=== PATIENT | male | born 1950 | race Caucasian/White ===

== ENCOUNTER → 2016-07-13 | Outpatient (CLI) | payer BC ==
[~2016-07-13] MED LIST: ASPI81TA28 PO; BLOOD PRESSURE PO; CHOL100010 PO; CHOLESTEROL PO; VITAMIN D PO; XRL10 PO; ZOLP10TA PO
--- NOTE | 2016-07-13 08:49 | DIAGNOSTIC IMAGING REPORT ---
CHEST 2 VIEWS ROUTINE CLINICAL HISTORY: Persistent cough COMPARISON STUDY: 07/18/2013 FINDINGS: The cardiac and mediastinal contours are normal. There is no evidence of focal pulmonary consolidation. There is no evidence of failure. No pleural effusions are visualized.[ There is a stable calcified right hilar lymph node and calcified right lower lobe granuloma. IMPRESSION: Old granulomatous calcifications. No active disease in the chest. Electronically signed by: Chris Mon M.D. 07/13/2016 8:48 AM Dictated Date/Time: 07/13/2016 8:47 AM
== END | disposition home or self-care (01) ==
LOC: C.RAD1850 08:29
PROVIDERS: ATTEND Family Medicine
DX: R05 Cough (principal)

== ENCOUNTER 2016-07-18 07:12 | Emergency (ER) | payer BC ==
[~2016-07-18] VITALS: Ht 190.5 cm; Wt 109.5 kg
[~2016-07-18 07:12] MED LIST changes: -BLOOD PRESSURE PO; -CHOL100010 PO; -CHOLESTEROL PO
[2016-07-18 07:16] VITALS: TEMP 36.7; Ht 190.5 cm; Wt 109.5 kg
--- NOTE | 2016-07-18 07:59 | DIAGNOSTIC IMAGING REPORT ---
CT OF THE ABDOMEN AND PELVIS WITHOUT CONTRAST, STONE PROTOCOL CLINICAL HISTORY: Left flank pain. COMPARISON STUDY: None. TECHNIQUE: Helical axial images of the abdomen and pelvis were obtained without IV or oral contrast according to renal stone protocol. FINDINGS: Note is made of a 4 mm calculus within the dependent aspect of the bladder. There is mild left hydroureteronephrosis. There is mild left perinephric infiltration. There are bilateral parapelvic cysts. Unenhanced images of liver, adrenal glands and pancreas are unremarkable. There are calcified granulomas within the spleen. There is no evidence for a bowel obstruction. There are findings suggestive of bilateral inguinal hernia repairs. IMPRESSION: Mild left hydroureteronephrosis. 4 mm bladder calculus. The findings suggest a left-sided calculus which has recently passed into the bladder. Electronically signed by: Chinedu Helton M.D. 07/18/2016 7:57 AM Dictated Date/Time: 07/18/2016 7:52 AM
[2016-07-18] MEDS ORDERED: CHOL100010 PO (08:19)
[2016-07-18 08:26] VITALS: BP 142/76; PULSE 60; O2SAT 97
[2016-07-18] MEDS ORDERED: CHOLESTEROL PO (08:27)
[2016-07-18] MEDS ORDERED: BLOOD PRESSURE PO (08:27)
--- NOTE | 2016-07-18 17:22 | EMERGENCY ROOM VISIT NOTE ---
ED Visit Note First contact with patient: 07:27 CHIEF COMPLAINT: Left Flank and abdominal pain today HISTORY OF PRESENT ILLNESS: This 66-year-old white male patient had sudden onset of pain in the left flank and left lower quadrant of the abdomen about 3 hours ago. There was nausea but no vomiting. The patient has not noticed any blood in urine or had any increased frequency or pain with urination recently. There is no history of kidney stones. He states his father had kidney stones. The pain was steady and severe. He did take some ibuprofen this morning without improvement. He then took a tablet of Flexeril from his , with moderate improvement in his symptoms. No symptoms on the right. He denies any difficulty with moving his bowels yesterday. No abdominal trauma. No other complaints. REVIEW OF SYSTEM: HEENT: No dizziness, visual problems, hearing loss, or tinnitus. There is no difficulty swallowing and no oral lesions are present. PULMONARY: No cough, shortness of breath, sputum production or hemoptysis. CARDIOVASCULAR: No chest pain, palpitations, shortness of breath or peripheral edema. GASTROINTESTINAL: No diarrhea, constipation, nausea, vomiting, or abdominal pain. GENITOURINARY: No dysuria, frequency, urgency or nocturia. NEUROLOGIC: No weakness, muscle tenderness, epilepsy or history of neurological problems. MUSCULOSKELETAL: No history of joint tenderness/swelling. Positive history of arthritis and arthralgias. SKIN: No rashes or lesions. PSYCHIATRIC: No history of depression or mental illness. ENDOCRINE: No history of diabetes, thyroid disorders, or abnormal hair growth. PMH: Supplemental sheet was reviewed and signed. Previous surgeries: Left knee TKA Medical history: Significant for hypertension and sinus infections Current medications: Reviewed and filed in patient's chart Allergies: NKDA Family history: Significant for hypertension. Parents are . SOCIAL HISTORY: Patient lives at home with his . Non-smoker, occasional alcohol use. Still employed. PHYSICAL EXAM: Vital Signs: Afebrile. Reviewed and filed in patient's chart. General: Well-developed, well-nourished, elderly white male, in no obvious discomfort. He is sitting on the bed. Alert and oriented. Skin: Warm and dry with good turgor. No rashes or lesions. No ecchymosis or erythema. The patient is not diaphoretic. No abrasions. HEART: Regular rate and rhythm without murmurs, ectopy, gallops, or rubs. Peripheral pulses are 2+. LUNGS: Clear to auscultation and breath sounds equal. No wheezes, rales, or rhonchi. Good air movement. ABDOMEN: Soft, left lower quadrant discomfort to palpation, no hepato-splenomegaly, or masses. There is mild left CVA tenderness. NEUROLOGIC: Sensory and motor functions grossly intact. EMERGENCY DEPARTMENT COURSE: Urinalysis shows 250+ blood[address] CT scan of the abdomen and pelvis without contrast shows a 4 mm stone in the bladder. There is mild hydronephrosis. This was read by radiology. His pain had almost disappeared by the time of discharge. DIAGNOSIS: Left ureterolithiasis. Renal colic. DISCHARGE INSTRUCTIONS AND TREATMENT: The patient was educated regarding today' s findings. Conservative care measures were discussed. High fluid intake, strain all urine passed over the next 2 days and bring any solid particles you find to your urologist or PCP for analysis. Strainer was provided. Tylenol and Motrin every 6 hours if needed for pain. He does not require Flomax or narcotics at this point. Return to the ER if the pain becomes severe. Kidney stone handout was provided. Patient was seen in conjunction with Dr. Paulino, who also evaluated the patient and concurred with today's diagnosis and treatment plan. Current/Historical Medications Scheduled Aspirin (Aspirin Ec), 81 MG PO DAILY Cholecalciferol (Vitamin D), 1,000 UNITS PO DAILY Rivaroxaban (Xarelto), 10 MG PO DAILY [Blood Pressure], 1 TAB PO DAILY [Cholesterol], 1 TAB PO DAILY Allergies Coded Allergies: No Known Allergies (Unverified , 07/18/16) Vital Signs Date Time Temp Pulse Resp B/P Pulse Ox O2 Delivery O2 Flow Rate FiO2 07/18/16 08:26 60 26 142/76 97 07/18/16 07:16 36.7 56 15 166/90 97 Room Air Departure Information Impression Primary Impression: Kidney stone on left side Additional Impression: Renal colic Dispostion Home / Self-Care Referrals Mark Rodgers M.D. Forms HOME CARE DOCUMENTATION FORM, Kidney stone size in mm: 4 MOTRIN USE, RENAL COLIC (KIDNEY STONES ), IMPORTANT VISIT INFORMATION Patient Instructions My [facility] Additional Instructions Maintain hydration Strain your urine and save any stones Call Dr. Rodgers tomorrow for follow-up once the stone has passed ibuprofen 600 mg every 6 hours with food for pain control Supplement with Tylenol 650 mg every 6 hours as needed for breakthrough pain Return to the ED for any other concerns Problem Qualifiers
== END 2016-07-18 08:28 | disposition home or self-care (01) ==
LOC: C.EDB 07:13 → C.EDA 08:28
DX: N20.0 Calculus of kidney (principal); N13.30 Unspecified hydronephrosis; I10 Essential (primary) hypertension; Z86.19 Personal history of other infectious and parasitic diseases; Z96.652 Presence of left artificial knee joint; Z79.82 Long term (current) use of aspirin; Z79.899 Other long term (current) drug therapy; Z84.1 Family history of disorders of kidney and ureter; Z82.49 Family history of ischemic heart disease and other diseases of the circulatory system

== ENCOUNTER → 2016-08-19 | Outpatient (CLI) | payer BC ==
[~2016-08-19] MED LIST changes: +BLOOD PRESSURE PO; +CHOL100010 PO; +CHOLESTEROL PO; -VITAMIN D PO; -ZOLP10TA PO
--- NOTE | 2016-08-19 13:41 | PULMONARY FUNCTION TEST ---
CLINICAL DATA: 66-year-old male with a height of 76 inches and a weight of [address] Orozco for evaluation of a persistent cough with exercise. Spirometry pre- and post-bronchodilator, lung volumes, and DLCO were performed. FINDINGS: Pre-bronchodilator spirometry is within normal limits. FVC was 91% of predicted. FEV1 was 90% of predicted. [id number] was 88% of predicted. There was no significant improvement after inhaled bronchodilator. Lung volumes were normal with the exception of a slight reduction in expiratory reserve volume due to the patient's weight. Diffusion capacity was normal at 100% of predicted. IMPRESSION: Normal baseline spirometry with no improvement after inhaled bronchodilator. Normal lung volumes and normal DLCO. MTDD
== END | disposition home or self-care (01) ==
LOC: C.RC 10:11
PROVIDERS: ATTEND Family Medicine
DX: I10 Essential (primary) hypertension (principal); R03.0 Elevated blood-pressure reading, without diagnosis of hypertension; R05 Cough

== ENCOUNTER → 2017-06-01 | Outpatient (CLI) | payer OTHER ==
--- NOTE | 2017-06-01 15:16 | DIAGNOSTIC IMAGING REPORT ---
L HAND MIN 3 VIEWS ROUTINE CLINICAL HISTORY: Left hand pain COMPARISON: None. DISCUSSION: No acute fractures or dislocations are visualized. There is dorsal soft tissue swelling. Within the dorsal soft tissues at the level of a carpal metacarpal joints, there is a linear 7 mm foreign body versus soft tissue calcification. Additional faint soft tissue calcifications are evident. IMPRESSION: 1. No acute fractures 2. Dorsal soft tissue swelling at the base of the hand. 3. Soft tissue calcifications versus foreign bodies. Clinical correlation will be necessary. Electronically signed by: Chris Mon M.D. 06/01/2017 3:14 PM Dictated Date/Time: 06/01/2017 3:12 PM
== END | disposition home or self-care (01) ==
LOC: C.RAD1850 15:04
PROVIDERS: ATTEND Family Medicine
DX: M79.642 Pain in left hand (principal)

== ENCOUNTER 2024-12-29 14:10 | Observation (INO) ==
--- NOTE | 2024-12-29 14:35 | Emergency Department Note ---
History of Present Illness General Chief complaint: Constipation Stated complaint: BOWEL OBSTRUCTION Time Seen by Provider: 12/29/24 14:31 History of Present Illness This is a 74-year-old male who presents to the emergency department via private vehicle with complaints of "constipation". The patient notes last bowel movement was on Tuesday. He denies any nausea or vomiting. He does note recent antibiotic course for a sinus infection. He finished antibiotics 3 days ago. No fevers or chills. The patient does not note some lower abdominal discomfort, suprapubic region. He states that since Tuesday there has been perhaps a tiny, very hard bowel movement but nothing of any substance. He does note that from straining, some hemorrhoids that developed and today a tiny bit of blood was noticed. He denies history of similar. Home Medications Medication Instructions Recorded Confirmed Type cetirizine 10 mg capsule (Zyrtec) 10 mg PO DAILY 04/19/18 12/29/24 History cholecalciferol (vitamin D3) 25 1,000 units PO DAILY 04/19/18 12/29/24 History mcg (1,000 unit) capsule coenzyme Q10 75 mg capsule (Ultra 75 mg PO DAILY 04/19/18 12/29/24 History CoQ10) amlodipine 2.5 mg tablet 2.5 mg PO DAILY 12/16/24 12/29/24 History aspirin 81 mg tablet 81 mg PO DAILY 12/16/24 12/29/24 History benzonatate 100 mg capsule 200 mg (2 x 100 mg) PO TID PRN 12/16/24 12/29/24 Rx cough #60 caps clopidogrel 75 mg tablet (Plavix) 75 mg PO DAILY 12/16/24 12/29/24 History isosorbide mononitrate 30 mg 30 mg PO DAILY 12/16/24 12/29/24 History tablet,extended release 24 hr nebivolol 5 mg tablet (Bystolic) 5 mg PO DAILY 12/16/24 12/29/24 History nitroglycerin 0.4 mg sublingual 0.4 mg sublingual Q5M PRN Chest 12/16/24 12/29/24 History tablet Pain ranolazine 500 mg tablet,extended 500 mg PO BID 12/16/24 12/29/24 History release,12 hr ropinirole 1 mg tablet 1 mg PO DAILY 12/16/24 12/29/24 History sertraline 100 mg tablet 150 mg PO DAILY 12/16/24 12/29/24 History trazodone 100 mg tablet 150 mg PO DAILY 12/16/24 12/29/24 History albuterol sulfate 90 mcg/actuation 2 puff inhalation QID PRN Wheezing 12/29/24 12/29/24 History aerosol inhaler multivitamin 1 tab PO DAILY 12/29/24 12/29/24 History rosuvastatin 20 mg tablet 20 mg PO DAILY 12/29/24 12/29/24 History Allergies Allergy/AdvReac Type Severity Reaction Status Date / Time No Known Allergies Allergy Verified 12/29/24 18:03 Past Med/Surg History Problem List Bleeding hemorrhoids CAD (coronary artery disease) Obstipation 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, right Pelvic pain Peyronie's disease Myofascial pain Cervical facet syndrome (Chronic) Cervical spondylosis (Chronic) Insomnia (Chronic) High cholesterol (Chronic) HTN (hypertension) (Chronic) Medical History History of deviated nasal septum Surgical History History of cardiac cath History of heart artery stent History of tonsillectomy and adenoidectomy H/O hernia repair H/O arthroscopic knee surgery Right History of total knee arthroplasty Social History Smoking Status: Never smoker Do You Dip or Chew Tobacco: No; Hx Alcohol Use: Yes Alcohol type: other Hx Substance Use: No Preferred Language: Welsh Communication Ability: Effective Visual Impairment: No Limitations Hearing Ability: Normal 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 Beliefs That Will Affect Care: None marital status: Current Living Situation: Spouse current occupational status: retired current occupation: Retired Feels Safe at Home: Yes Safety Concerns: Feels Safe At This Time Assistive Devices: Glasses Review of Systems A total of 10 systems reviewed and were otherwise negative Physical Exam Vital Signs Vital Signs - 24 hr 12/29/24 14:14 12/29/24 15:30 12/29/24 16:00 Temperature 36.4 C L Temperature Source Temporal Artery Scan Pulse Rate 54 L 59 L 47 L Pulse Rate from SpO2 Sensor 59 L Respiratory Rate 19 Respiratory Effort / Characteristics Non-Labored Spontaneous Respiratory Depth Normal Respiratory Pattern Regular Blood Pressure 132/76 133/80 Blood Pressure Mean 94 102 Pulse Oximetry 95 94 Oxygen Delivery Method Room Air Sepsis Recent Fever Within 48 Hours No Sepsis New/Unexplained Change in Mental Status No Sepsis Action Taken by Nursing No Action Required 12/29/24 16:00 Temperature Temperature Source Pulse Rate 57 L Pulse Rate from SpO2 Sensor 57 L Respiratory Rate 20 Respiratory Effort / Characteristics Respiratory Depth Respiratory Pattern Blood Pressure 160/90 H Blood Pressure Mean 131 Pulse Oximetry Oxygen Delivery Method Sepsis Recent Fever Within 48 Hours Sepsis New/Unexplained Change in Mental Status Sepsis Action Taken by Nursing VITAL SIGNS - Vital signs and nursing notes were reviewed. Stable and afebrile. GENERAL -74-year-old male appearing his stated age who is in no acute distress. Communicates well with provider and answers questions appropriately. SKIN - Without rashes. No meningeal or petechial rash. HEAD - NC/AT. EYES - PERRL with EOMI bilaterally. Sclera anicteric. EARS - No deformities of external structures noted on gross examination bilaterally. NOSE - Midline and without cyanosis. No epistaxis or purulent drainage noted. MOUTH/OROPHARYNX - Without perioral cyanosis. NECK - Neck with FROM. No nuchal rigidity. LUNGS - CTA CARDIAC - RRR ABDOMEN - Abdominal contour normal without pulsations or visible masses. BS normoactive all four quadrants. There is suprapubic abdominal tenderness to palpation. No guarding. No rigidity no palpable masses, hepatosplenomegaly, or ascites noted. EXTREMITIES - No clubbing or peripheral cyanosis. +5/5 strength noted in UE/LE bilaterally. NEUROLOGIC - Cranial nerves II through XII grossly intact. PSYCH -alert, oriented and pleasant on exam Course Administered Medications Acetaminophen (Acetaminophen 325 Mg Tab) 650 mg PO Q4H PRN PRN Reason: pain/fever Stop: 01/28/25 21:05 Last Admin: 12/30/24 06:03 Dose: 650 mg Documented By: meliton Admin: 12/29/24 21:43 Dose: 650 mg Documented By: meliton Amlodipine Besylate (Amlodipine Besylate 5 Mg Tab) 2.5 mg PO HS ANTONIO Stop: 01/28/25 22:14 Last Admin: 12/29/24 22:17 Dose: 2.5 mg Documented By: meliton Clopidogrel Bisulfate (Clopidogrel Bisulfate 75 Mg Tab) 75 mg PO HS ANTONIO Stop: 01/28/25 22:14 Last Admin: 12/29/24 22:18 Dose: 75 mg Documented By: meliton Phenylephrine HCl (Phenylephrine 0.25% Supp 1 Ea) 1 supp HI TID ANTONIO Stop: 01/28/25 21:05 Last Admin: 12/29/24 21:59 Dose: 1 supp Documented By: meliton Ranolazine (Ranolazine 500 Mg Er Tab) 500 mg PO BID ANTONIO Stop: 01/28/25 21:05 Last Admin: 12/29/24 22:00 Dose: 500 mg Documented By: meliton Ropinirole HCl (Ropinirole Hcl 1 Mg Tablet) 1 mg PO HS [facility] Stop: 01/28/25 21:05 Last Admin: 12/29/24 22:00 Dose: 1 mg Documented By: meliton Rosuvastatin Calcium (Rosuvastatin Calcium 20 Mg Tab) 20 mg PO [facility] Stop: 01/28/25 22:14 Last Admin: 12/29/24 22:18 Dose: 20 mg Documented By: meliton Trazodone HCl (Trazodone Hcl 50 Mg Tab) 150 mg PO [facility] Stop: 01/28/25 21:05 Last Admin: 12/29/24 22:00 Dose: 150 mg Documented By: meliton Discontinued Medications Glycerin (Glycerin Adult 12 Supp/Box Supp) Confirm Administered Dose 12 supp HI .STK-MED ONE Stop: 12/29/24 18:21 Last Admin: 12/29/24 19:46 Dose: 12 supp Documented By: JOSUE Glycerin (Glycerin Adult 12 Supp/Box Supp) 1 supp HI NOW ONE Stop: 12/29/24 18:53 Last Admin: 12/29/24 19:45 Dose: Not Given Documented By: JOSUE Acetaminophen (Ofirmev) 1,000 mg in 100 mls @ 400 mls/hr IV NOW STA Stop: 12/29/24 15:20 Last Infusion: 12/29/24 15:48 Dose: Infused Documented By: Admin: 12/29/24 15:29 Dose: 400 mls/hr Documented By: MARY Ioversol (Optiray 320 100ml) 93 ml IV ONCE ONE Stop: 12/29/24 15:52 Last Admin: 12/29/24 15:51 Dose: 93 ml Documented By: MINI Lidocaine HCl (Lidocaine 2% Jelly 5 Ml Tube) 1 ml EXT NOW ONE Stop: 12/29/24 17:43 Last Admin: 12/29/24 17:56 Dose: 1 ml Documented By: MARY Medical Decision Making Laboratory Data 12/29/24 15:13 12/29/24 15:13 Lab Results 12/29/24 12/29/24 12/29/24 Range/Units 15:13 15:17 16:25 WBC 8.94 (4.8-10.8) K/ul RBC 4.85 (4.70-6.10) M/uL Hgb 15.4 (14.0-18.0) g/dl POC Hgb 15.6 (14.0-18.0) g/dl Hct 44.1 (42.0-52.0) % POC Hct 46 (42-52) % MCV 90.9 (80.0-100.0) fL MCH 31.8 (25.0-34.0) pg MCHC 34.9 (32.0-36.0) g/dL RDW Std Deviation 42.5 (36.4-46.3) fL RDW Coeff of Rajni 12.9 (11.5-14.5) % Plt Count 193 (130-400) K/uL MPV 11.6 (9.4-12.4) fL Immature Gran % (Auto) 0.3 % Neut % (Auto) 72.4 % Lymph % (Auto) 15.4 % Bowie % (Auto) 8.4 % Eos % (Auto) 2.8 % Baso % (Auto) 0.7 % Neut # (Auto) 6.47 (1.40-6.50) K/uL Lymph # (Auto) 1.38 (1.20-3.40) K/uL Bowie # (Auto) 0.75 H (0.11-0.59) K/uL Eos # (Auto) 0.25 (0.00-0.50) K/uL Baso # (Auto) 0.06 (0.00-0.20) K/uL Immature Gran # (Auto) 0.03 (0.01-0.20) K/uL POC Sodium 138 (135-144) mmol/L Sodium 136 (136-145) mmol/L POC Potassium 4.0 (3.3-5.0) mmol/L Potassium 4.0 (3.5-5.1) mmol/L POC Chloride 104 (101-112) mmol/L Chloride 104 (98-107) mmol/L Carbon Dioxide 24 (21-32) mmol/L POC Total CO2 22 L (24-31) mmol/L Anion Gap 8 (3-11) POC Anion Gap 17.0 (16-25) mmol/L POC BUN 21 H (7-18) mg/dl BUN 21 (6-23) mg/dl Creatinine 0.96 (0.6-1.4) mg/dl POC Creatinine 1.0 (0.6-1.3) mg/dl Est Cr Clr Drug Dosing 90.1 ml/min eGFR 83.46 BUN/Creatinine Ratio 21.9 H (10-20) Glucose 110 H (70-99(Fasting)) mg/dl POC Glucose (other) 109 H (70-99) mg/dl Calcium 9.3 (8.6-10.3) mg/dl POC Ioniz Calcium Gutierrez 1.20 (1.12-1.32) mmol/l Total Bilirubin 0.8 (0.2-1.0) mg/dl AST 23 (13-39) U/L ALT 18 (7-52) U/L Alkaline Phosphatase 51 (34-104) U/L Total Protein 7.0 (6.0-8.3) gm/dl Albumin 4.3 (3.4-5.0) gm/dl Globulin 2.7 (2.5-4.0) gm/dl Albumin/Globulin Ratio 1.6 (0.9-2) Urine Color Yellow Urine Appearance Clear (Clear) Urine pH 5.5 (4.5-7.5) Ur Specific Dulzura 1.027 (1.000-1.030) Urine Protein Negative (Negative) Urine Glucose (UA) Negative (Negative) Urine Ketones Negative (Negative) Urine Blood Negative (Negative) Urine Nitrite Negative (Negative) Urine Bilirubin Negative (Negative) Urine Urobilinogen Negative (Negative) Ur Leukocyte Esterase Trace H (Negative) Urine WBC (Auto) 0-5 (0-5) /hpf Urine RBC (Auto) 0-2 (0-2) /hpf U Hyaline Cast (Auto) 0-2 (0-2) /lpf U Epithel Cells (Auto) 0-2 (0-2) /hpf Urine Bacteria (Auto) None Seen (None Seen) Urine Comment Imaging Data Radiologist's Impression: Abdomen/Pelvis CT 12/29/24 14:43 EXAMINATION: CT of the abdomen and pelvis performed after the administration of IV contrast TECHNIQUE: Helical CT images from the lung bases through the symphysis pubis were obtained with contrast. Coronal and sagittal reformatted images were generated at a workstation for further assessment. Dose reduction techniques were achieved by using automatic exposure control and/or adjustment of mA and/or kV according to patient size and/or use of iterative reconstruction technique. COMPARISON: None HISTORY: Abdominal pain FINDINGS: Lower chest: No consolidation. No pleural effusion or pneumothorax. Liver: No suspicious liver lesions. Portal veins appear patent. Gallbladder: No gallstones. No evidence of acute cholecystitis. Spleen: Normal size. Pancreas: No suspicious pancreatic lesions. The pancreatic duct is not dilated. Adrenal glands: No adrenal nodules. Kidneys: No masses or stones. Mild bilateral hydroureter and hydronephrosis, likely related to urinary bladder distention. Bladder / Pelvic organs: Prominent distended urinary bladder. No mass or wall thickening. The prostate gland may be mildly enlarged. Bowel: No bowel obstruction. No abnormal bowel wall thickening. The appendix is unremarkable. There is a large colonic stool burden, with a large volume of stool at the rectum and sigmoid colon. Lymph nodes: No retroperitoneal, mesenteric, or pelvic lymphadenopathy. Peritoneum / Retroperitoneum: No free fluid or air within the abdomen. Vessels: No infrarenal aortic aneurysm. Bones and soft tissues: No suspicious lesion in the bones. IMPRESSION: Large colonic stool with marked stool burden in the rectum and sigmoid colon, concerning for impaction. The urinary bladder is significantly distended resulting in mild bilateral hydroureteronephrosis. Electronically signed by Mark Garcia 12-29-2024 5:20 PM MDM Narrative Patient was seen and evaluated as above in room B05. Review was performed of nursing notes and vital signs. I did review pertinent previous visits and patient history. After obtaining a thorough history and physical examination the above work up was performed. Patient presents to us today for evaluation of lower abdominal discomfort and decreased bowel movement over the past few days. The patient is tender in the lower abdomen on examination. No guarding. No rigidity. Patient does note development of hemorrhoids now with straining over the past few days. He is on Plavix plus aspirin. Small amount of bleeding hemorrhoids today noted per patient. Options of care were discussed with the patient. Patient initially was ordered a KUB from triage however upon assessment of the patient we will proceed with a CT scan of the abdomen/pelvis to further assess noting the abdominal pain and decreased stool output to ensure no concomitant diverticulitis/intestinal issue beyond constipation. Patient was ordered IV Tylenol for pain. I did review the CT scan. The patient has a large stool burden with evidence of dilated distal colon and rectal region secondary to the fecal load. There is also a distended bladder. Bladder scan was performed. Patient seem to be retaining some urine but was able to urinate. He was feeling much better following the spontaneous urination but still retaining per bedside post void residual as measured by ultrasound. Labs revealed no leukocytosis or concerning anemia. There is no evidence of kidney or liver failure. Glucose 110. Urinalysis negative. Formal CT scan as above noting the large colonic stool burden and impaction. 1733: I spoke with Dr. Carrington, bootmaker regarding the CT scan findings and the patient's presentation today. Recommendation was disimpaction as we had discussed, followed by soapsuds enemas, and also initiating oral therapy such as GoLytely. My plan is to proceed with medical admission noting the patient's antiplatelet therapy in the setting of some rectal bleeding even before the disimpaction with the hemorrhoids and findings today. We will proceed with further evaluation and management in the inpatient setting. Case discussed with the hospitalist service. Please refer to further documentation regarding his stay. Verbal consent was obtained from the patient. Mao catheter placed by RN. I do recommend attempted stool disimpaction. Verbal consent was obtained from the patient. I reviewed benefit versus risk with the patient in detail. It is felt that the benefit outweighed risk. Patient was placed in a position on the right side. Mao catheter was draining appropriately of yellow urine, no blood seen. The rectal region was lubricated with sterile jelly and unfortunately the stool was a full finger length within the rectal region and no stool was able to be retrieved. I did advance a glycerin suppository to help facilitate passage of stool. Will proceed with soapsuds enema and patient will also begin the GoLytely prep. Patient will drink 8 ounces every 20 minutes but only for a few doses, likely 2 or three doses in total. He is not to drink the entire 4 L. The goal is to begin initiation of passage of stool. GCS: 15 In the evaluation and treatment of this patient the following differential diagnoses were entertained: Fecal impaction, stercoral colitis, perforation, diverticulitis, bowel obstruction, among others Impression & Plan Fecal impaction, Acute urinary retention, Hydroureteronephrosis, Abdominal pain, lower Discharge Plan Visit Data Chief Complaint: Constipation Stated Complaint: BOWEL OBSTRUCTION ED Provider: Branden Doyle ED Midlevel Provider: Enmanuel Soto Discharge Problem: Fecal impaction, Acute urinary retention, Hydroureteronephrosis, Abdominal pain, lower Patient Disposition: Admitted As Inpatient Condition: Good Discharge Instructions Interventions: ED Discharge Assessment Last Done: 12/29/24 20:38
[2024-12-29] MEDS: ACETAMINOPHEN 1,000 MG/100 ML VIAL IV STA (15:29)
[2024-12-29 15:30] LABS: Hematocrit (blood only) 44.1 % (42.0-52.0); Hemoglobin 15.4 g/dl (14.0-18.0); Immature Granulocytes # (auto) 0.03 K/uL (0.01-0.20); Immature Granulocytes % (auto) 0.3 %; Mean Corpuscular Hemoglobin 31.8 pg (25.0-34.0); Mean Corpuscular Volume 90.9 fL (80.0-100.0); Platelet Count 193 K/uL (130-400); RDW Standard Deviation 42.5 fL (36.4-46.3); Red Blood Count 4.85 M/uL (4.70-6.10); White Blood Count 8.94 K/ul (4.8-10.8)
[2024-12-29] MEDS: OPTIRAY 320 100ml IV ONE (15:51)
[2024-12-29 15:53] LABS: Alanine Aminotransferase 18.0 U/L (7-52); Albumin Globulin Ratio 1.6 (0.9-2); Alkaline Phosphatase 51.0 U/L (34-104); Anion Gap 8.0 (3-11); Bilirubin,Total 0.8 mg/dl (0.2-1.0); Blood Urea Nitrogen 21.0 mg/dl (6-23); Calcium 9.3 mg/dl (8.6-10.3); Carbon Dioxide 24.0 mmol/L (21-32); Chloride 104.0 mmol/L (98-107); Creatinine Clr Calc Pharmacy 90.1 ml/min; Globulin 2.7 gm/dl (2.5-4.0); Glucose 110.0 mg/dl (70-99(Fasting)); Potassium 4.0 mmol/L (3.5-5.1); Sodium 136.0 mmol/L (136-145); Total Protein 7.0 gm/dl (6.0-8.3)
--- NOTE | 2024-12-29 16:28 | Emergency Department Note ---
ED Visit Note I was consulted by the Advanced Practice Provider, Enmanuel Soto PA-C. I personally made/approved the management plan and take responsibility for the patient management. I performed a substantive portion of the visit. This includes the aspects of: -History/Physical/Personally seeing the patient -MDM .
[2024-12-29 17:08] LABS: Appearance Urine Clear (Clear); Bacteria Urine Automated None Seen (None Seen); Cast Urine Automated 0-2 /lpf (0-2); Epithelial Cell Urine Auto 0-2 /hpf (0-2); Glucose Urine UA Negative (Negative); RBC Urine Automated 0-2 /hpf (0-2); WBC Urine Automated 0-5 /hpf (0-5)
--- NOTE | 2024-12-29 17:21 | CT Scan Report ---
EXAMINATION: CT of the abdomen and pelvis performed after the administration of IV contrast TECHNIQUE: Helical CT images from the lung bases through the symphysis pubis were obtained with contrast. Coronal and sagittal reformatted images were generated at a workstation for further assessment. Dose reduction techniques were achieved by using automatic exposure control and/or adjustment of mA and/or kV according to patient size and/or use of iterative reconstruction technique. COMPARISON: None HISTORY: Abdominal pain FINDINGS: Lower chest: No consolidation. No pleural effusion or pneumothorax. Liver: No suspicious liver lesions. Portal veins appear patent. Gallbladder: No gallstones. No evidence of acute cholecystitis. Spleen: Normal size. Pancreas: No suspicious pancreatic lesions. The pancreatic duct is not dilated. Adrenal glands: No adrenal nodules. Kidneys: No masses or stones. Mild bilateral hydroureter and hydronephrosis, likely related to urinary bladder distention. Bladder / Pelvic organs: Prominent distended urinary bladder. No mass or wall thickening. The prostate gland may be mildly enlarged. Bowel: No bowel obstruction. No abnormal bowel wall thickening. The appendix is unremarkable. There is a large colonic stool burden, with a large volume of stool at the rectum and sigmoid colon. Lymph nodes: No retroperitoneal, mesenteric, or pelvic lymphadenopathy. Peritoneum / Retroperitoneum: No free fluid or air within the abdomen. Vessels: No infrarenal aortic aneurysm. Bones and soft tissues: No suspicious lesion in the bones. IMPRESSION: Large colonic stool with marked stool burden in the rectum and sigmoid colon, concerning for impaction. The urinary bladder is significantly distended resulting in mild bilateral hydroureteronephrosis. Electronically signed by Mark Garcia 12-29-2024 5:20 PM
[2024-12-29] MEDS ORDERED: LAVAGE SOLUTION 4000ML PO SCH (17:45)
[2024-12-29] MEDS: LIDOCAINE 2% JELLY 5 ML TUBE EXT ONE (17:56)
--- NOTE | 2024-12-29 18:08 | History & Physical Report ---
Date of Service December 29, 2024 Assessment & Plan (1) Obstipation: (2) Bleeding hemorrhoids: (3) CAD (coronary artery disease): (4) HTN (hypertension): Plan 74 y/o man with CAD and HTN admitted with very severe obstipation causing acute urinary retention and hydronephrosis #Obstipation -ED discussed with telephone maintainer gastroentrerologist - manual disimpation in progress, fleet enema, golytely 8 oz x 3 from above #acute urinary retention and bilateral hydronephrosis -continue obrien placed in ED, voiding trial after obstipation resolved #bleeding hemorrhoids (on ASA and plavix) -hemorrhoidal suppositories tid, address constipation, aim for toothpaste soft stools -try to contiue ASA and plavix if possible, has been >6 mo from stent in case brief interruption needed -CBC as needed has not been a lot of bleeding Hg normal today #CAD with PCI of LAD at [facility] June 2024 - reviewed discharge summary from that admission #Microvascular CAD with chronic angina - currently pretty well controlled #HTN #HLD -remain on DAPT with ASA and plavix at least 1 year -continue ranolazine, rosuvastatin, B-jordi, imdur, amlodipine -imdur recently reduced to daily in AM because of lightheadedness DVT ppx - SCD for now History of Present Illness Primary Care Provider: Kristopher Orozco 74 y/o who came in with lower abdominal pain, unable to have BM several days, bleeding hemorrhoids several days of feeling poorly, lower abdominal pain, no BM except few hard nikia has not been aware of being constipated the past few weeks, no history of similar incidents of severe constipation has bleeding hemorrhoids from ASA and plavix for past month has struggled with a sinusitis and cough that finally resolved within past week he has chronic angina from microvascular coronary disease managed by [facility], LAD stent at [facility] in May obrien being placed for urinary retention ED spoke with resource management planner who recommended disimpaction, enemas, go lytely few doses from above Allergies Allergy/AdvReac Type Severity Reaction Status Date / Time No Known Allergies Allergy Verified 12/29/24 18:03 Home Medications Medication Instructions Recorded Confirmed Type cetirizine 10 mg capsule (Zyrtec) 10 mg PO DAILY 04/19/18 12/29/24 History cholecalciferol (vitamin D3) 25 1,000 units PO DAILY 04/19/18 12/29/24 History mcg (1,000 unit) capsule coenzyme Q10 75 mg capsule (Ultra 75 mg PO DAILY 04/19/18 12/29/24 History CoQ10) amlodipine 2.5 mg tablet 2.5 mg PO DAILY 12/16/24 12/29/24 History aspirin 81 mg tablet 81 mg PO DAILY 12/16/24 12/29/24 History benzonatate 100 mg capsule 200 mg (2 x 100 mg) PO TID PRN 12/16/24 12/29/24 Rx cough #60 caps clopidogrel 75 mg tablet (Plavix) 75 mg PO DAILY 12/16/24 12/29/24 History isosorbide mononitrate 30 mg 30 mg PO DAILY 12/16/24 12/29/24 History tablet,extended release 24 hr nebivolol 5 mg tablet (Bystolic) 5 mg PO DAILY 12/16/24 12/29/24 History nitroglycerin 0.4 mg sublingual 0.4 mg sublingual Q5M PRN Chest 12/16/24 12/29/24 History tablet Pain ranolazine 500 mg tablet,extended 500 mg PO BID 12/16/24 12/29/24 History release,12 hr ropinirole 1 mg tablet 1 mg PO DAILY 12/16/24 12/29/24 History sertraline 100 mg tablet 150 mg PO DAILY 12/16/24 12/29/24 History trazodone 100 mg tablet 150 mg PO DAILY 12/16/24 12/29/24 History albuterol sulfate 90 mcg/actuation 2 puff inhalation QID PRN Wheezing 12/29/24 12/29/24 History aerosol inhaler multivitamin 1 tab PO DAILY 12/29/24 12/29/24 History rosuvastatin 20 mg tablet 20 mg PO DAILY 12/29/24 12/29/24 History Past Med/Surg History Problem List Bleeding hemorrhoids CAD (coronary artery disease) Obstipation 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, right Pelvic pain Peyronie's disease Myofascial pain Cervical facet syndrome (Chronic) Cervical spondylosis (Chronic) Insomnia (Chronic) High cholesterol (Chronic) HTN (hypertension) (Chronic) Medical History History of deviated nasal septum Surgical History History of cardiac cath History of heart artery stent History of tonsillectomy and adenoidectomy H/O hernia repair H/O arthroscopic knee surgery Right History of total knee arthroplasty Social History Smoking Status: Never smoker Hx Alcohol Use: Yes Alcohol type: wine Hx Substance Use: No Preferred Language: Luxembourgish Communication Ability: Effective Visual Impairment: No Limitations Hearing Ability: Normal Beliefs That Will Affect Care: None marital status: Current Living Situation: Spouse current occupational status: retired current occupation: Retired Feels Safe at Home: Yes Review of Systems Review of Systems: All systems reviewed & are unremarkable except as noted in HPI & below Physical Exam Physical Exam: Last 24h vitals reviewed GEN: lying on side in ED, looks uncomfortable HEENT: pupils equal, sclerae anicteric, moist MM RESP: normal WOB, CTAB CV: reg no mrg ABD: lower abdomen full and mildly tender, +BT : obrien with clear yellow urine SKIN: warm and dry, no generalized rashes EXT: wwp no edema NEURO: AOx person, place, and situation. Face symmetric, speech normal, moves 4 ext spontaneously and equally Results & Data Results & Data Vital Signs (Past 12 Hours) Vital Signs Temp Pulse Resp BP Pulse Ox O2 Del Method 12/29/24 16:00 57 L 20 160/90 H 12/29/24 16:00 47 L 12/29/24 15:30 59 L 133/80 94 12/29/24 14:14 36.4 C L 54 L 19 132/76 95 Room Air Laboratory Results UA only trace LE CBC and CMP reviewed and pasically normal, unremarkable. Cr is 0.96 CT with severe obstipation as described above as well as very distended bladder. I personally reviewed CT films and there is a massive amount of stool in sigmoid and rectum with significant amount of distention PG Care Time/CCT Total # of Minutes Spent Total Time Spent with Patient: Total time spent is greater than 50% in coordination of care (as documented) at patient's floor/unit and/or counseling patient: Coding Level of Care Code 45781 INT INP/OBS CARE MIN Diagnoses Obstipation K59.00 Bleeding hemorrhoids K64.9 CAD (coronary artery disease) I25.10 HTN (hypertension) I10
[2024-12-29] MEDS: GLYCERIN ADULT 12 SUPP/BOX SUPP PR ONE ×2 (19:45→19:46)
[2024-12-29] MEDS ORDERED: MAGNESIUM HYDROXIDE SUSP 30 ML UDC PO PRN (21:06)
[2024-12-29] MEDS ORDERED: POLYETHYLENE (MIRALAX) 17 GM PACK PO PRN (21:06)
[2024-12-29] MEDS ORDERED: NITROGLYCERIN SL 0.4 MG/TAB TAB SL PRN (21:06)
[2024-12-29] MEDS ORDERED: SOD PHOSPHATE/SOD BIPHOSPHATE ENEMA 132 ML BTL PR PRN (21:06)
[2024-12-29] MEDS ORDERED: ALUMINUM/MAGNESIUM SUSP 30 ML UDC PO PRN (21:06)
[2024-12-29] MEDS ORDERED: ALBUTEROL HFA 8 GM INHALER INH PRN (21:06)
[2024-12-29] MEDS ORDERED: ONDANSETRON INJ 2 MG/ML 2 ML VIAL IV PRN (21:06)
[2024-12-29] MEDS ORDERED: BENZONATATE 100 MG CAPSULE PO PRN (21:06)
[2024-12-29] MEDS: ACETAMINOPHEN 325 MG TAB PO PRN (21:43)
[2024-12-29] MEDS: PHENYLEPHRINE 0.25% SUPP 1 EA PR SCH (21:59)
[2024-12-29] MEDS: RANOLAZINE 500 MG ER TAB PO SCH (22:00)
[2024-12-29] MEDS: ROSUVASTATIN CALCIUM 20 MG TAB PO SCH (22:18)
[2024-12-29] MEDS: CLOPIDOGREL BISULFATE 75 MG TAB PO SCH (22:18)
[2024-12-30 07:45] VITALS: BP 129/73; PULSE 56; RESP 18; TEMP 98.2; O2SAT 94
[2024-12-30] MEDS: ASPIRIN 81 MG ECTAB PO SCH (07:47)
[2024-12-30] MEDS: ISOSORBIDE MONO EXTENDED REL 30 MG TABCR PO SCH (07:48)
[2024-12-30] MEDS: SERTRALINE HCL 50 MG TABLET PO SCH (07:48)
[2024-12-30] MEDS: METOPROLOL TARTRATE 25 MG TAB PO SCH (07:48)
[2024-12-30 08:25] LABS: Anion Gap 7.0 (3-11); Blood Urea Nitrogen 15.0 mg/dl (6-23); Calcium 8.6 mg/dl (8.6-10.3); Carbon Dioxide 27.0 mmol/L (21-32); Chloride 107.0 mmol/L (98-107); Creatinine Clr Calc Pharmacy 86.3 ml/min; Glucose 106.0 mg/dl (70-99(Fasting)); Potassium 3.9 mmol/L (3.5-5.1); Sodium 141.0 mmol/L (136-145)
[2024-12-30 08:30] LABS: Hematocrit (blood only) 40.8 % (42.0-52.0); Hemoglobin 13.7 g/dl (14.0-18.0); Mean Corpuscular Hemoglobin 30.9 pg (25.0-34.0); Mean Corpuscular Volume 92.1 fL (80.0-100.0); Platelet Count 178 K/uL (130-400); RDW Standard Deviation 43.8 fL (36.4-46.3); Red Blood Count 4.43 M/uL (4.70-6.10); White Blood Count 9.48 K/ul (4.8-10.8)
[2024-12-30] MEDS ORDERED: ROSUVASTATIN CALCIUM 20 MG TAB PO SCH (09:00)
[2024-12-30] MEDS ORDERED: CLOPIDOGREL BISULFATE 75 MG TAB PO SCH (09:00)
[2024-12-30] MEDS ORDERED: HYDROCORTISONE ACETATE 25 MG SUPP PR ONE (09:30)
--- NOTE | 2024-12-30 10:53 | Discharge Summary ---
Discharge Summary Date of Service December 30, 2024 Principal Dx & Hospital Course #1 = Principal Diagnosis (1) Obstipation: (2) Bleeding hemorrhoids: (3) CAD (coronary artery disease): (4) HTN (hypertension): Plan 74 y/o man with CAD and HTN admitted with very severe obstipation causing acute urinary retention and hydronephrosis #Obstipation CTAP: large colonic stool w/ marked stool burden in rectum & sigmoid colon, concerning for impaction. Urinary bladder is significantly distended in mild b/l hydroureteronephrosis. ED discussed with manager talent acquisition medical laboratory technicians - manual disimpaction in progress, fleet enema, golytely 8 oz x 3 from above --> has had multiple lg BM's since disimpaction & laxatives. Recommend continue on stool softener + daily miralax at home. Recommend discuss repeat CN w/ PCP at follow up. --> pt unsure of last one & now has change in bowel habits. #acute urinary retention and bilateral hydronephrosis - resolved continue obrien placed in ED, secondary to urinary retention from obstipation Obrien removed 12/30 --> voiding without difficulty prior to dc. #bleeding hemorrhoids (on ASA and plavix) hemorrhoidal suppositories BID x 5 days on discharge. CBC stable at time of dc. Recommend follow up w/ PCP outpatient for recheck of CBC #CAD with PCI of LAD at [facility] June 2024 remain on DAPT with ASA and plavix at least 1 year continue ranolazine, rosuvastatin, B-jordi, imdur, amlodipine imdur recently reduced to daily in AM because of lightheadedness Discharged home 12/30 Admission HPI Per Admitting Provider 74 y/o who came in with lower abdominal pain, unable to have BM several days, bleeding hemorrhoids several days of feeling poorly, lower abdominal pain, no BM except few hard nikia has not been aware of being constipated the past few weeks, no history of similar incidents of severe constipation has bleeding hemorrhoids from ASA and plavix for past month has struggled with a sinusitis and cough that finally resolved within past week he has chronic angina from microvascular coronary disease managed by [facility], LAD stent at [facility] in May obrien being placed for urinary retention ED spoke with medical laboratory technicians who recommended disimpaction, enemas, go lytely few doses from above Discharge Exam General: NAD, VS: BP 129/73, P56, Resp18, T36.8C Resp: normal respiratory effort Abd: + BS, no tenderness to palpation, soft Extremities: Moves all extremities, no edema Neuro: A&O x3, Skin: intact, no lesions noted Discharge Plan Discharge Items Patient Disposition: Home - Self-Care Reason For Visit: OBSTIPATION, URINARY RETENTION Discharge Diagnosis: Severe constipation, urinary retention. Condition on Discharge: Good Activity: Resume your previous activity Non-emergency contact: Primary Care Provider Call non-emergency contact if: you have any medication questions, your symptoms worsen, your pain is not controlled and you have a fever Follow-up/Referrals: Kristopher Orozco [Primary Care Provider] - Diet: Heart Healthy Addtl Attending Provider Instructions: Mr. Cruz, You were recently hospitalized secondary to severe constipation that also affected your ability to urinate. You were given a bowel regimen and had several significant bowel movements that did help with your symptoms. After the bowel movements, the urinary catheter was removed and you are able to urinate on your own. Medications: Your medication list has been reviewed and reconciled upon discharge to ensure accuracy and continuity of care. An updated list of all your medications is included with your hospital discharge paperwork. Please review this list closely, and make note of any changes. Phenylephrine suppositories have been sent in to your pharmacy. These help with your hemorrhoids. Please use these twice daily for the next 5 days. Over the counter medications recommended: Colace 100 mg once daily. - this is a stool softener and will help your stools remain soft so that your hemorrhoids can begin to heal Miralax 1 capful daily - this is a laxative that will help you continue to move your bowels. - Please take this daily for at least 1-2 weeks or until seen by your PCP for further recommendations. Take your medications as instructed; do not skip a dose of your medicines. Make sure all of your doctors know every medicine you are taking (including [id number] medicines, vitamins, and supplements). Call your primary care provider before taking any new medicines (including over- the-counter medicines, vitamins, and supplements), because some of these may interact with your current medications, or may make your symptoms worse. Tell your primary care provider if you cannot afford your medications. Activity: You can do normal everyday activities as your body allows. Take rest breaks if you feel tired. Do not overexert. Stop activity if you have pain, shortness of breath or feel dizzy. Follow-up appointments: Make an appointment with your primary care physician within one week of discharge. A copy of this summary will be sent to them. Every time you see your primary care physician, or any other doctor, bring your medication list, and a list of questions. - At your follow up visit, please discuss a repeat colonoscopy. CONTACT YOUR PRIMARY CARE PROVIDER if you experience any of the following: Shortness of breath or difficulty breathing Fevers or chills Feeling tired with normal activity or experiencing dizziness or fainting Difficulty following your treatment plan, or difficulty taking medications CALL 911 OR GO TO THE EMERGENCY DEPARTMENT if you experience any of the following: Severe abdominal pain or nausea/vomiting Severe chest pain, or chest pain that radiates (moves) to your jaw or arm Sudden, severe shortness of breath or difficulty breathing Thank you for allowing us to participate in your care. Pending Studies at Discharge: No Stand-Alone Forms: [facility], Smoking Cessation Medications and DC Order Prescriptions: New hydrocortisone acetate [Anusol-HC] 25 mg Suppository 25 mg MI BID 5 Days Qty: 12 0RF Rx Instructions: Please use twice daily for 5 days. First dose at home will be this evening. Continued cetirizine [Zyrtec] 10 mg capsule 10 mg PO DAILY Patient Comments: Unable to verify OTC meds at this date/time. 12/29/24 coenzyme Q10 [Ultra CoQ10] 75 mg capsule 75 mg PO DAILY Patient Comments: Unable to verify OTC meds at this date/time. 12/29/24 cholecalciferol (vitamin D3) 1,000 unit capsule 1,000 units PO DAILY Patient Comments: Unable to verify OTC meds at this date/time. 12/29/24 nitroglycerin 0.4 mg tablet, sublingual 0.4 mg sublingual Q5M PRN (Reason: Chest Pain) Rx Instructions: do not exceed 3 doses per episode isosorbide mononitrate 30 mg tablet extended release 24 hr 30 mg PO DAILY nebivolol [Bystolic] 5 mg tablet 5 mg PO DAILY amlodipine 2.5 mg tablet 2.5 mg PO DAILY ranolazine 500 mg tablet extended release 12 hr 500 mg PO BID clopidogrel [Plavix] 75 mg tablet 75 mg PO DAILY aspirin 81 mg tablet 81 mg PO DAILY Patient Comments: Unable to verify OTC meds at this date/time. 12/29/24 sertraline 100 mg tablet 150 mg PO DAILY trazodone 100 mg tablet 150 mg PO DAILY ropinirole 1 mg tablet 1 mg PO DAILY benzonatate 100 mg capsule 200 mg PO TID PRN (Reason: cough) Qty: 60 0RF multivitamin Tablet 1 tab PO DAILY Patient Comments: Unable to verify OTC meds at this date/time. 12/29/24 albuterol sulfate 90 mcg/actuation HFA aerosol inhaler 2 puff INHALATION QID PRN (Reason: Wheezing) rosuvastatin 20 mg tablet 20 mg PO DAILY Discharge Orders: Discharge Order (Routine); Ordered 12/30/24 Ordered By: Sara Sandhu Admission Data Admit Date/Time: 12/29/24 18:31 Attending Provider: Robert Cruz Admit Provider: Monica Nelson Primary Care Provider: Kristopher Orozco Other Providers: Monica Nelson Other Interventions: Discharge Summary Assessment (RN) Last Done: 12/30/24 11:18 Hospital Stay Data Consultations 12/29/24 17:52 ED Decision to Admit Stat Diagnostic Imagining Performed 12/29/24 14:43 CT abd pelvis IV con only Stat Pending Results Patient Have Any Pending Studies at Discharge: No Discharge Instructions Given to Patient (Per Discharging Provider) Mr. Cruz, Steven were recently hospitalized secondary to severe constipation that also affected your ability to urinate. You were given a bowel regimen and had several significant bowel movements that did help with your symptoms. After the bowel movements, the urinary catheter was removed and you are able to urinate on your own. Medications: Your medication list has been reviewed and reconciled upon discharge to ensure accuracy and continuity of care. An updated list of all your medications is included with your hospital discharge paperwork. Please review this list closely, and make note of any changes. Phenylephrine suppositories have been sent in to your pharmacy. These help with your hemorrhoids. Please use these twice daily for the next 5 days. Over the counter medications recommended: Colace 100 mg once daily. - this is a stool softener and will help your stools remain soft so that your hemorrhoids can begin to heal Miralax 1 capful daily - this is a laxative that will help you continue to move your bowels. - Please take this daily for at least 1-2 weeks or until seen by your PCP for further recommendations. Take your medications as instructed; do not skip a dose of your medicines. Make sure all of your doctors know every medicine you are taking (including [id number] medicines, vitamins, and supplements). Call your primary care provider before taking any new medicines (including over- the-counter medicines, vitamins, and supplements), because some of these may interact with your current medications, or may make your symptoms worse. Tell your primary care provider if you cannot afford your medications. Activity: You can do normal everyday activities as your body allows. Take rest breaks if you feel tired. Do not overexert. Stop activity if you have pain, shortness of breath or feel dizzy. Follow-up appointments: Make an appointment with your primary care physician within one week of discharge. A copy of this summary will be sent to them. Every time you see your primary care physician, or any other doctor, bring your medication list, and a list of questions. - At your follow up visit, please discuss a repeat colonoscopy. CONTACT YOUR PRIMARY CARE PROVIDER if you experience any of the following: Shortness of breath or difficulty breathing Fevers or chills Feeling tired with normal activity or experiencing dizziness or fainting Difficulty following your treatment plan, or difficulty taking medications CALL 911 OR GO TO THE EMERGENCY DEPARTMENT if you experience any of the following: Severe abdominal pain or nausea/vomiting Severe chest pain, or chest pain that radiates (moves) to your jaw or arm Sudden, severe shortness of breath or difficulty breathing Thank you for allowing us to participate in your care. Supervising Physician Co-Signing Physician Notes The patient was not seen by me. The chart was reviewed. Case discussed with SUSANNA Roy. Agree with assessment and plan Total Time Total Time Spent Total Time Spent (In Minutes): 45 Total Time Includes: Examination of the Patient, Discharge Planning and Medication Reconciliation Coding Level of Care Code 27885 INP/OBS DISCH >30 MIN Diagnoses Obstipation K59.00 Bleeding hemorrhoids K64.9 CAD (coronary artery disease) I25.10 HTN (hypertension) I10
== END 2024-12-30 11:41 | disposition home or self-care (01) ==
LOC: 3N 14:10 → ED 14:10 → SUATTDRO 18:31 → 3N 20:38